=== PATIENT | male | born 1970 | race American Indian/Alaskan Native ===

== ENCOUNTER 2016-08-18 11:41 | Emergency (ER) | payer SELFPAY ==
[2016-08-18] MEDS ORDERED: TORADOL IM ONE (15:03)
[2016-08-18] MEDS ORDERED: DECADRON IM ONE (15:03)
[2016-08-18] MEDS ORDERED: BENADRYL PO ONE (15:03)
--- NOTE | 2016-08-18 16:50 | Emergency Department Report ---
HPI - General Chief Complaint: Allergic Reaction Time Seen by Provider: 08/18/16 15:02 - HPI HPI: 46-year-old male who presents today with a allergic reaction to his face. Patient states that he used hair dye on his. 3 days ago and has been itching, burning, loosing ever since. He tried Benadryl without relief. Denies history of similar symptoms. Denies history of allergies. Describes his pain as a 7 out of 10 constant, burning pain. Denies fever, chills, nausea, vomiting, chest pain, shortness of breath, abdominal pain. Denies difficulty in breathing or difficulty in swallowing. ED Past Medical Hx - Past Medical History Previous Medical History?: No - Surgical History Past Surgical History?: No - Social History Smoking Status: Current Every Day Smoker Substance Use Type: None - Medications Home Medications: Home Medications Medication Instructions Recorded Confirmed Last Taken Type Cephalexin [Keflex] 500 mg PO QID #20 cap 08/18/16 Unknown Rx Diphenhydramine HCl [Benadryl 25 mg PO Q6H #20 tablet 08/18/16 Unknown Rx Allergy TAB] Naproxen [Naprosyn] 500 mg PO BID #30 tablet 08/18/16 Unknown Rx Prednisone [predniSONE 10 mg 10 mg PO .TAPER #1 tab.ds.pk 08/18/16 Unknown Rx (6-Day Pack, 21 Tabs)] Sulfamethoxazole/Trimethoprim 1 each PO BID #20 tablet 08/18/16 Unknown Rx [Bactrim DS TAB] ED Review of Systems ROS: Stated complaint: FACE PAIN Other details as noted in HPI Constitutional: denies: chills, fever, malaise Eyes: denies: eye pain ENT: denies: ear pain, throat pain, congestion Respiratory: denies: cough, shortness of breath, wheezing Cardiovascular: denies: chest pain, palpitations Endocrine: no symptoms reported Gastrointestinal: denies: abdominal pain, nausea, vomiting Skin: rash, lesions, pruritus Neurological: denies: headache, weakness Physical Exam - Physical Exam Vital Signs: Vital Signs 08/18/16 08/18/16 11:43 15:40 Temperature 99.1 F Pulse Rate 88 Respiratory 16 18 Rate Blood Pressure 131/91 O2 Sat by Pulse 99 Oximetry Physical Exam: GENERAL: The patient is well-developed and well-nourished. Patient is in NAD. HEAD: Normocephalic. Atraumatic. FACE: Peeling skin with drainage over the facial hair region. No bleeding noted. Positive for erythematous base and tenderness to palpation. EYES: PERRL. NOSE: Normal nasal mucosa with no nasal discharge. THROAT: No erythema, swelling or exudates. NECK: Supple, nontender, without lymphadenopathy. CHEST/LUNGS: Clear to auscultation throughout. HEART/CARDIOVASCULAR: Regular rate and rhythm. ABDOMEN: Abdomen is soft, nontender. No guarding or rebound tenderness. EXTREMITIES: Peripheral pulses intact. Capillary refill less than 2 seconds. NEURO: Alert and oriented x 3. Normal gait. ED Course Vital Signs 08/18/16 08/18/16 11:43 15:40 Temperature 99.1 F Pulse Rate 88 Respiratory 16 18 Rate Blood Pressure 131/91 O2 Sat by Pulse 99 Oximetry ED Medical Decision Making - Lab Data Vital Signs 08/18/16 08/18/16 11:43 15:40 Temperature 99.1 F Pulse Rate 88 Respiratory 16 18 Rate Blood Pressure 131/91 O2 Sat by Pulse 99 Oximetry - Medical Decision Making 46-year-old male presents today with an allergic reaction to hair dye. Patient was given Benadryl, Toradol, Decadron and reports symptomatic relief. Patient is in no acute distress at this time. He will be discharged home and is encouraged to follow up with a primary care provider. He will be sent home on Benadryl, steroid pack, Naprosyn, Bactrim and Keflex and is encouraged to return to the emergency room for any worsening symptoms. Critical care attestation.: If time is entered above; I have spent that time in minutes in the direct care of this critically ill patient, excluding procedure time. ED Disposition Clinical Impression: Allergic reaction Qualifiers: Encounter type: initial encounter Qualified Code(s): T78.40XA - Allergy, unspecified, initial encounter Disposition: DISCHARGED TO HOME OR SELFCARE Is pt being admited?: No Does the pt Need Aspirin: No Condition: Stable Instructions: Allergies (ED), Anaphylaxis (ED) Additional Instructions: Follow-up with your primary care provider. Return to the emergency department if symptoms worsen. Prescriptions: Sulfamethoxazole/Trimethoprim [Bactrim DS TAB] 1 each PO BID #20 tablet Diphenhydramine HCl [Benadryl Allergy TAB] 25 mg PO Q6H #20 tablet Cephalexin [Keflex] 500 mg PO QID #20 cap Naproxen [Naprosyn] 500 mg PO BID #30 tablet Prednisone [predniSONE 10 mg (6-Day Pack, 21 Tabs)] 10 mg PO .TAPER #1 tab.ds.pk Referrals: DARIO HA MD [Primary Care Provider] - 3-5 Days [facility] [Outside] - 3-5 Days Forms: Work/School Release Form(ED), Accompanied Note Time of Disposition: 16:53
[2016-08-18 17:05] VITALS: BP 128/84
== END 2016-08-18 17:05 | disposition home or self-care (01) ==
LOC: ED 11:41
DX: T78.40XA Allergy, unspecified, initial encounter (principal); F17.200 Nicotine dependence, unspecified, uncomplicated; Y92.9 Unspecified place or not applicable
CPT/HCPCS: 96372; 99282; J1100; J1885